=== PATIENT | female | born 2000 | race Two or more races ===

== ENCOUNTER 2022-04-24 08:41 | Emergency (ER) | payer BC, SELFPAY ==
[2022-04-24 09:00] VITALS: BP 108/56; PULSE 63; RESP 18; TEMP 36.3; O2SAT 100
--- NOTE | 2022-04-24 09:14 | ED.GENADULT ---
HPI - General Adult General Chief complaint: Skin/Abscess/Foreign Body Stated complaint: rash Time Seen by Provider: 04/24/22 09:15 Source: patient Mode of arrival: ambulatory Limitations: no limitations History of Present Illness HPI narrative: 22-year-old female patient presents to the [facility] with complaints of a rash that started yesterday. Patient states she has been taking Benadryl for the rash. Patient states rash is very itchy. Patient states he came up suddenly when she woke up yesterday morning. Complaining of itchiness rash to bilateral ax left flank area, in between inner thighs and to bilateral upper extremities. Denies any new lotions, soaps or detergents. Patient states she has never had hives before. Patient does states she has poor cap that live in her home and states that her roommate did complain of a small similar rash the last 1-2 days. Related Data Home Medications Medication Instructions Recorded Confirmed bupropion HCl 150 mg 24 hr tablet, 150 mg PO DAILY 04/24/22 04/24/22 extended release Allergies Allergy/AdvReac Type Severity Reaction Status Date / Time No Known Allergies Allergy Verified 04/24/22 08:49 Review of Systems Review of Systems: CONSTITUTIONAL: Denies fever, chills, or sweats. EYES: Denies visual changes, redness, or discharge. ENT: Denies rhinorrhea, congestion, sore throat, or otalgia. CARDIOVASCULAR: Denies chest pain, palpitations, or edema. RESPIRATORY: Denies cough or dyspnea. GASTROINTESTINAL: Denies abdominal pain, nausea, vomiting, or diarrhea. GENITOURINARY: Denies dysuria or hematuria. SKIN: Positive rash with itching. MUSCULOSKELETAL: Denies back pain, joint pain, or myalgia. NEUROLOGIC: Denies headache, numbness, or weakness. PSYCHIATRIC: Denies anxiety or depression. PMFSH Comments At the time of my signature I agree with nursing past medical history, surgical, social, and family history. There is no relevant family history pertinent to the presenting complaint. Exam Narrative: GENERAL: Well-appearing, well-nourished, and in no acute distress. HEAD: Normocephalic, atraumatic. EYES: PERRLA and EOMI. ENT: Nares clear, no rhinorrhea or epistaxis. Mucous membranes moist. NECK: Supple. No lymphadenopathy CHEST: Clear to auscultation. No respiratory distress. HEART: Regular rate and rhythm. No murmur heard. Normal peripheral pulses. ABDOMEN: Soft, nontender, nondistended, normal active bowel sounds. EXTREMITIES: Normal range of motion. No edema. SKIN: Warm, dry, patient has erythemic Ring shaped lesions with itchiness to bilateral upper extremities, bilateral axillary areas and flank areas and to bilateral inner thighs. NEURO: No focal deficits. Alert and oriented x3. Course Course Level of Care: Express Care Visit Vital Signs Vital signs: Vital Signs Temperature 36.3 C L 04/24/22 09:00 Pulse Rate 63 04/24/22 09:00 Respiratory Rate 18 04/24/22 09:00 Blood Pressure 108/56 L 04/24/22 09:00 Pulse Oximetry 100 04/24/22 09:00 Oxygen Delivery Room Air 04/24/22 09:00 Temperature 36.3 C L 04/24/22 09:00 Pulse Rate 63 04/24/22 09:00 Respiratory Rate 18 04/24/22 09:00 Blood Pressure 108/56 L 04/24/22 09:00 Pulse Oximetry 100 04/24/22 09:00 Oxygen Delivery Room Air 04/24/22 09:00 Vital signs reviewed. Medical Decision Making MDM Narrative Medical decision making narrative: Discussed with patient that rash looks more like a wearing warm/fungal rash. Plan care for patient is discharge home with oral antifungal a topical antifungal since is a pretty large area. Discussed with patient she can take at 22 are antihistamine to help with that itchiness. Discussed with patient she will need to wash all her sheets clothes and would recommend that she get her cats checked out just to make sure that there is no after the suction to the animals. Differential Diagnosis Differential Diagnosis: Differential diagnosis:
== END 2022-04-24 09:30 | disposition home or self-care (01) ==
PROVIDERS: Emergency Provider Nurse Practitioner Family; PCP Registered Nurse
DX: B35.4 Tinea corporis (principal); F41.9 Anxiety disorder, unspecified; F32.A Depression, unspecified
CPT/HCPCS: 99213; G0463

== ENCOUNTER 2022-04-25 08:28 | Emergency (ER) | payer BC, SELFPAY ==
[2022-04-25 08:29] VITALS: BP 139/76; PULSE 91; RESP 18; TEMP 36.6; O2SAT 100
[2022-04-25] MEDS: predniSONE 40 MG, predniSONE 10 MG 50 MG PO (09:35)
[2022-04-25 09:36] VITALS: BP 105/67; PULSE 82; RESP 16; O2SAT 100
--- NOTE | 2022-04-25 09:40 | ED.GENADULT ---
HPI - General Adult General Chief complaint: Allergic Reaction Stated complaint: allergic reaction/swollen lips Time Seen by Provider: 04/25/22 08:34 History of Present Illness HPI narrative: 22-year-old female presenting to the emergency department for evaluation of facial swelling secondary to starting ketoconazole, fluconazole and fexofenadine for suspected ringworm. Patient stated that last night she started to have some facial swelling and that the lip swelling was worsened this morning. Patient denies any chest pain or shortness of breath. Patient denies any swelling of her tongue or airway. Patient denies any difficulty breathing or swallowing. Patient denies any other allergic rash. Related Data Home Medications Medication Instructions Recorded Confirmed bupropion HCl 150 mg 24 hr tablet, 150 mg PO DAILY 04/24/22 04/25/22 extended release Allergies Allergy/AdvReac Type Severity Reaction Status Date / Time No Known Allergies Allergy Verified 04/24/22 08:49 Review of Systems Review of Systems: All systems reviewed & are unremarkable except as noted in HPI and below Exam Narrative: APPEARANCE: Well appearing, no pain, no distress, well-nourished. HEAD: normocephalic, atraumatic. EYES: PERRLA/EOMI, conjunctivae clear. NOSE: Normal no drainage Mouth: Right lip swelling. THROAT: Pharynx clear, no exudate. NECK: Supple. No adenopathy, no masses. RESPIRATORY: Airway patent, respirations nonlabored. Clear to auscultation bilaterally, no rales, rhonchi, wheezing. CARDIOVASCULAR: Regular rate and rhythm without murmurs rubs or gallops. ABDOMINAL: Soft, nontender, nondistended, normal bowel sounds MUSCULOSKELETAL: Moves all extremities. Strength/ROM intact, No edema, No calf tenderness. NEURO: Alert. Cranial nerves II through XII intact. Grossly intact SKIN: Warm, dry. Normal Color Course Course Emergency Course: 22-year-old female with facial swelling secondary to starting ketoconazole, fluconazole, fexofenadine. Patient was advised to stop taking the medications and patient will be started on a steroid burst. Patient was told to have close follow-up with her primary care physician on Tuesday in order to have her medications adjusted. Patient was also educated on reasons to return to the emergency department. At time of evaluation patient denies any swelling of her tongue posterior pharynx and denies any difficulty breathing or swallowing. Patient had lungs that were clear to auscultation. Patient was comfortable with the plan for discharge and close follow-up. At time of discharge patient denied any worsening of her symptoms. All question concerns were addressed and patient was well-appearing. Vital Signs Vital signs: Vital Signs Temperature 97.8 F 04/25/22 08:29 Pulse Rate 91 04/25/22 08:29 Respiratory Rate 18 04/25/22 08:29 Blood Pressure 139/76 04/25/22 08:29 Pulse Oximetry 100 04/25/22 08:29 Oxygen Delivery Room Air 04/25/22 08:29 Temperature 97.8 F 04/25/22 08:29 Pulse Rate 82 04/25/22 09:36 Respiratory Rate 16 04/25/22 09:36 Blood Pressure 105/67 04/25/22 09:36 Pulse Oximetry 100 04/25/22 09:36 Oxygen Delivery Room Air 04/25/22 08:29 Medical Decision Making Vital Signs Vital Signs: Vital Signs Temperature 97.8 F 04/25/22 08:29 Pulse Rate 91 04/25/22 08:29 Respiratory Rate 18 04/25/22 08:29 Blood Pressure 139/76 04/25/22 08:29 Pulse Oximetry 100 04/25/22 08:29 Oxygen Delivery Room Air 04/25/22 08:29 Temperature 97.8 F 04/25/22 08:29 Pulse Rate 82 04/25/22 09:36 Respiratory Rate 16 04/25/22 09:36 Blood Pressure 105/67 04/25/22 09:36 Pulse Oximetry 100 04/25/22 09:36 Oxygen Delivery Room Air 04/25/22 08:29 Discharge Plan Discharge Clinical Impression: Allergic reaction Qualifiers: Encounter type: initial encounter Qualified Code(s): T78.40XA - Allergy, unspecified, initial encounter Pat
== END 2022-04-25 09:55 | disposition home or self-care (01) ==
PROVIDERS: Emergency Provider Emergency Medicine; PCP Registered Nurse
DX: T78.40XA Allergy, unspecified, initial encounter (principal)
CPT/HCPCS: 99283; J7512

== ENCOUNTER 2023-05-22 11:11 | Emergency (ER) | payer BC, SELFPAY | END 2023-05-22 11:40 | disposition home or self-care (01) | LOC: EXPTROY 12:24 | PROVIDERS: Emergency Provider Nurse Practitioner Family | DX: J02.0 Streptococcal pharyngitis (principal) | CPT/HCPCS: 87880; 99213; G0463 ==

== ENCOUNTER 2024-08-13 09:19 | Emergency (ER) | payer SELFPAY ==
[2024-08-13 09:27] VITALS: BP 121/60; PULSE 68; RESP 18; TEMP 36.4; O2SAT 100
[2024-08-13 09:40] LABS: EDUAAPPEAR Clear; EDUABILI Negative (Negative); EDUABLOOD Trace (Negative); EDUACOLOR1 Yellow; EDUAGLUCOSE Negative (Negative); EDUAKETONE Negative (Negative); EDUALEUKO Negative (Negative); EDUANITRATE Negative (Negative); EDUAPROTEIN Negative (Negative); EDUASPGRAVITY 1.015; EDUAUROBILI 0.2
--- NOTE | 2024-08-13 09:46 | ED_ITS ---
HPI - Female Genitourinary General Chief complaint: Urogenital-Female Stated complaint: UTI Time Seen by Provider: 08/13/24 09:46 Source: patient and RN notes reviewed Mode of arrival: ambulatory Limitations: no limitations History of Present Illness HPI Narrative: 24-year-old female presented for complaint of burning with urination, onset yesterday. Endorses 2 days of frequency and hesitancy. Endorses lower ab dominal pain this morning. Denies hematuria, nausea, vomiting, flank pain, constipation, diarrhea, fevers or chills. LMP 2 weeks ago. Denies concern for STD. Related Data Home Medications ?Medication ?Instructions ?Recorded ?Confirmed ?Last Taken ?Type bupropion HCl 150 mg 24 hr tablet, 150 mg PO DAILY 04/24/22 04/18/23 Unknown History extended release albuterol sulfate 90 mcg/actuation 1 puff inhalation Q4H PRN 04/18/23 04/18/23 Unknown History aerosol inhaler cholecalciferol (vitamin D3) 125 125 mcg PO DAILY 04/18/23 04/18/23 Unknown History mcg (5,000 unit) capsule Allergies Allergy/AdvReac Type Severity Reaction Status Date / Time No Known Allergies Allergy Verified 08/13/24 09:36 Review of Systems Review of Systems: CONSTITUTIONAL: Denies body aches, fever, chills, or sweats. CARDIOVASCULAR: Denies chest pain, palpitations, or edema. RESPIRATORY: Denies cough or dyspnea. GASTROINTESTINAL: Denies abdominal pain, nausea, vomiting, or diarrhea. GENITOURINARY: Reports dysuria, frequency, urgency, denies hematuria, flank pain, discharge SKIN: Denies rash, itching, or wounds. MUSCULOSKELETAL: Denies back pain or myalgia. COUNT INCLUDES THE [facility] Surgical History Surgical History (Updated 04/18/23 @ 08:05 by Elva De La Garza CMA) [place] teeth extracted Social History Social History (Updated 04/18/23 @ 08:04 by Elva De La Garza CMA) Smoking status: Never smoker Alcohol intake: never Substance use: never Substance use type: does not use Do You Feel Safe in your Home?: Yes Lack of Transportation: No Lack of Food: Never True Current Housing: I Have Housing Concerned About Future Housing: No Difficulty Paying Gas/Electric Bills: No Difficulty Paying for Meds: No Currently Unemployed: No Education: Bachelor's Degree Difficulty w/ Childcare or Family Care: No Comments At time of signature, I have reviewed and agree with nursing past medical, surgical, social and family history unless otherwise noted. Please see nursing chart for further information. There is no relevant family history pertinent to the presenting complaint Exam Narrative: GENERAL: Well-appearing and in no acute distress. ENT: Mucous membranes pink and moist. NECK: Normal AROM. Supple. CHEST: No respiratory distress. Clear to auscultation. HEART: Regular rate and rhythm. ABDOMEN: Soft, nontender, nondistended, normal active bowel sounds. No CVA tenderness SKIN: Warm, dry, no rash. NEURO: No focal deficits. Alert and oriented x3. Gait steady. PSYCH: Normal affect. Course Course Emergency Course: Patient is aware of diagnosis, understands and agrees to treatment plan. Anticipatory guidance given. Patient agrees to follow-up as directed and is aware of reasons to seek care at the emergency department. Portions of this record may have been created with voice recognition software Level of Care: Express Care Visit Vital Signs Vital signs: Vital Signs Temperature 97.5 F L 08/13/24 09:27 Pulse Rate 68 08/13/24 09:27 Respiratory Rate 18 08/13/24 09:27 Blood Pressure 121/60 08/13/24 09:27 Pulse Oximetry 100 08/13/24 09:27 Oxygen Delivery Room Air 08/13/24 09:27 Temperature 97.5 F L 08/13/24 09:27 Pulse Rate 68 08/13/24 09:27 Respiratory Rate 18 08/13/24 09:27 Blood Pressure 121/60 08/13/24 09:27 Pulse Oximetry 100 08/13/24 09:27 Oxygen Delivery Room Air 08/13/24 09:27 Reviewed MDM - Female Genitourinary MDM Narrative Medical decision making narrative: Discussed physical exam findings and urine dip. Will treat with Macrobid at this time and culture. Advised supportive measures and signs/symptoms to go to the ER. Pt is appropriate for outpt treatment and f/u. Differential Diagnosis Differential diagnosis: Likely urinary tract infection, bacterial vaginosis, vaginitis, cystitis and other Lab Data Labs: Lab Results 08/13/24 Range/Units 09:38 POC Urine Color Yellow POC Urine Clarity Clear POC Urine pH 6.0 POC Ur Specif [place] 1.015 POC Urine Protein Negative (Negative) POC Ur Glucose (UA) Negative (Negative) POC Urine Ketones Negative (Negative) POC Urine Blood Trace (Negative) POC Urine Nitrite Negative (Negative) POC Urine Bilirubin Negative (Negative) POC Urine Urobilinogen 0.2 POC U Leukocyte Esteras Negative (Negative) Discharge Plan Discharge Clinical Impression: Dysuria Patient Disposition: Home Condition: Stable Instructions: Antibiotic Form, Urinary Tract Infection in Women (ED) Additional Instructions: Take the antibiotic as prescribed The urine will be sent of for a culture to identify what type of bacteria is causing your infection. If the culture shows that the antibiotic will not get rid of your infection, you will be notified and a new antibiotic will be called in for you. Increase water intake you will need to follow up with your PCP, call to schedule an appointment. Go to the ER for any worsening symptoms or concerns Patient Language: Latvian Prescriptions: New nitrofurantoin monohyd/m-cryst [Macrobid] 100 mg capsule 100 mg PO Q12H 5 Days Qty: 10 0RF Rx Instructions: must administer with a meal/food No Action bupropion HCl 150 mg tablet extended release 24 hr 150 mg PO DAILY fluconazole 150 mg tablet 150 mg PO WEEKLY 14 Days Qty: 2 0RF Rx Instructions: as a single dose once a week for 2 weeks fexofenadine 180 mg tablet 180 mg PO DAILY Qty: 20 0RF cholecalciferol (vitamin D3) 125 mcg (5,000 unit) capsule 125 mcg PO DAILY albuterol sulfate 90 mcg/actuation HFA aerosol inhaler 1 puff inhalation Q4H PRN prednisone 50 mg tablet 50 mg PO DAILY 5 Days Qty: 5 0RF Follow-up/Referrals: PHYSICIAN,TIMING INSPECTOR [Primary Care Provider] - Time of Disposition: 09:56
[2024-08-13 10:05] LABS: BEDSIDEPREGUCG Negative (Negative)
== END 2024-08-13 10:04 | disposition home or self-care (01) ==
PROVIDERS: Emergency Provider Nurse Practitioner Family; Referring Provider Family Medicine
DX: R30.0 Dysuria (principal)
CPT/HCPCS: 81003; 81025; 87086; 99213; G0463